=== PATIENT | female | born 1975 | race African-American/Black ===

== ENCOUNTER → 2021-02-06 | Day surgery (SDC) | payer MEDICARE, MEDICAID ==
[~2021-02-06] VITALS: Ht 149.9 cm; Wt 134.3 kg
[~2021-02-06] MED LIST: B50 PO; CHOL2000 PO; LACTATED RINGERS 1,000 ML IV SCH; LIDOCAINE HCL 1% 20ML VIAL (Pyxis) INJ ONE; LITHTAB PO; MORPHINE SULFATE 2 MG/ML CPJ (NOT FOR IM USE) IV PRN; ONDANSETRON HCL 4MG/2ML INJ IV PRN; POTASSIUM CHLORIDE 20MEQ TABLET SR PO SCH; PROPOFOL 200MG/20ML VIAL IV ONE; SODIUM CHLORIDE 0.9% 1,000 ML IV ONE; ZIPR60CA6 PO; [UNRECOGNIZED DRUG - OTHER] IM
[2021-02-06 08:38] LABS: UCG SCREEN NEGATIVE
[2021-02-06 09:38] LABS: HEMOGLOBIN. 9.8 g/dL (12.0-16.0); MEAN CORPUSCULAR HEMOGLOBIN 29.6 pg (28.0-32.0); MEAN CORPUSCULAR VOLUME 87.4 fL (81.0-99.0); MEAN PLATELET VOLUME 7.7 fl (7.4-10.4); PLATELET 347 x1000/uL (130-400); RED BLOOD CELL COUNT 3.32 mill/uL (4.2-5.4); RED CELL DISTRIBUTION WIDTH 16.2 % (11.6-14.6)
[2021-02-06 09:42] LABS: BASOPHILS % 0.3 % (0.0-2.0); EOSINOPHILS % 2.5 % (0.0-5.0); LYMPHOCYTES % 18.6 % (20.0-50.0); MONOCYTES % 5.7 % (2.0-8.0); NEUTROPHILS % 72.9 % (40.0-76.0)
[2021-02-06 09:49] LABS: CHLORIDE 106 mEq/L (98-107)
== END | disposition home or self-care (01) ==
LOC: OR 07:58
PROVIDERS: ATTEND Internal Medicine Gastroenterology
DX: K59.00 Constipation, unspecified (principal); D64.9 Anemia, unspecified; K64.0 First degree hemorrhoids; E66.9 Obesity, unspecified; R73.9 Hyperglycemia, unspecified; K63.89 Other specified diseases of intestine; F31.9 Bipolar disorder, unspecified; Z20.822 Contact with and (suspected) exposure to COVID-19; G47.30 Sleep apnea, unspecified; Z79.899 Other long term (current) drug therapy; Z98.890 Other specified postprocedural states; Z72.89 Other problems related to lifestyle
CPT/HCPCS: 36415; 36573; 45378; 80048; 81025; 82962; 85025; 87426; 93005; C1725; J2704; J3490